=== PATIENT | female | born 1965 | race Caucasian/White ===

== ENCOUNTER 2018-01-13 10:48 | Emergency (ER) | payer OTHER ==
[2018-01-13] MEDS ORDERED: Ketorolac INJ* 30 MG/ML 1 ML VIAL IM ONE (11:18)
[2018-01-13] MEDS ORDERED: LORazepam TAB(*) 1 MG PO ONE (11:18)
--- NOTE | 2018-01-13 11:23 | ED ---
Neck Pain - HPI Summary HPI Summary: This patient is a 52 year old F presenting to [facility] accompanied by her with a chief complaint of upper neck pain since last PM (01/12/18). She endorses that 2 years ago she was diagnosed with a torn rotator cuff, dx with MRI shoulder and neck. PMHx migraines, herniated discs in neck. She endorses twisting her ankle but no other trauma last PM; she was sitting, watching TV when she experienced inability to move secondary to sudden onset pain. She notes severe upper neck pain, LUE paresthesia and DROM; I have to think really hard to make it move, the LUE is automatically [place] on its own transiently, DROM of neck secondary to pain, and new onset RUE paresthesia. Prior to yesterday, her only real neck sx were fatigue problems. Last PM pt took Advil and hydrocodone which did not alleviate sx. She notes she normally would take Advil for her neck pain, but nothing stronger, as the sx are usually never very serious. - History of Current Complaint Chief Complaint: EDNeckComplaint Stated Complaint: NECK PAIN Time Seen by Provider: 01/13/18 11:05 Hx Obtained From: Patient Onset/Duration Of Injury/Symptoms: Hours Mechanism Of Injury: No Known Trauma Timing: Constant Onset/Duration: Sudden Onset, Started hours ago, Still Present Severity Initially: Moderate Severity Currently: Moderate Pain Intensity: 8 Pain Scale Used: 0-10 Numeric Location: Discrete At: - L paracervical neck Character: Sharp, Stiff, Spasmotic Aggravating Factors: Movement Alleviating Factors: Nothing Associated Signs & Symptoms: Positive: Weakness - LUE, Paresthesia Related History: Similar Episode/Dx As: - herniated discs, torn rotator cuff, Previous Neck Injury - Allergies/Home Medications Allergies/Adverse Reactions: Allergies Allergy/AdvReac Type Severity Reaction Status Date / Time amoxicillin Allergy upset Verified 01/13/18 11:26 stomach Home Medications: Home Medications Ferrous Sulfate [Iron] 1 tab PO DAILY 01/13/18 [History Confirmed 01/13/18] Multivitamin [Daily Multiple Vitamin] 1 tab PO DAILY 01/13/18 [History Confirmed 01/13/18] Vitamin B Complex CAP* [B Complex CAP*] 1 cap PO DAILY 01/13/18 [History Confirmed 01/13/18] Vitamin D3 CAP/TAB (NF) 1 cap PO DAILY 01/13/18 [History Confirmed 01/13/18] PMH/Surg Hx/FS Hx/Imm Hx Endocrine/Hematology History: Denies: Hx Diabetes Cardiovascular History: Denies: Hx Hypertension, Hx Pacemaker/ICD History: Denies: Hx Renal Disease Musculoskeletal History: Reports: Hx Scoliosis - THORACIC, Other Musculoskeletal History - torn rotator cuff, herniated discs in neck Sensory History: Denies: Hx Legally Blind, Hx Deafness, Hx Hearing Aid Opthamlomology History: Denies: Hx Legally Blind EENT History: Denies: Hx Deafness Neurological History: Reports: Hx Migraine Denies: Hx Headaches, Other Neuro Impairments/Disorders Psychiatric History: Denies: Hx Panic Disorder - Cancer History Hx Chemotherapy: No Hx Radiation Therapy: No - Surgical History Surgery Procedure, Year, and Place: LT BREAST BIOPSY - W/ CLIP PLACEMENT - [id number]- BENIGN TUMOR REMOVED FROM BEHIND Rt [id number] C [id number] - ILEO- POUCH RECONSTRUCTION - COMPLETE COLON REMOVED - ULCERATIVE COLITIS Infectious Disease History: No Infectious Disease History: Denies: Traveled Outside the [place] in Last 30 Days - Family History Known Family History: Positive: Cardiac Disease, Hypertension, Other - sister, neck problems Negative: Renal Disease, Seizure Disorder - Social History Occupation: Employed Full-time Lives: With Family Review of Systems Negative: Fever Positive: no symptoms reported Positive: Arthralgia - neck, Decreased ROM - neck, LUE Positive: Weakness - LUE, Paresthesia - BUE All Other Systems Reviewed And Are Negative: Yes Physical Exam - Summary Physical Exam Summary: Appearance: The patient is well-nourished in no acute distress and in no acute pain. Skin: The skin is warm and dry and skin color reflects adequate perfusion. HEENT: The head is normocephalic and atraumatic. The pupils are equal and reactive. The conjunctivae are clear and without drainage. Nares are patent and without drainage. Mouth reveals moist mucous membranes and the throat is without erythema and exudate. The external ears are intact. The ear canals are patent and without drainage. The tympanic membranes are intact. Neck: The neck is supple with DROM and tenderness in the left para-cervical area. There are no carotid bruits. There is no neck vein distension. Respiratory: Chest is non-tender. Lungs are clear to auscultation and breath sounds are symmetrical and equal. Cardiovascular: Heart is regular rate and rhythm. There is no murmur or rub auscultated. There is no peripheral edema and pulses are symmetrical and equal. Abdomen: The abdomen is soft and non-tender. There are normal bowel sounds heard in all four quadrants and there is no organomegaly palpated. Musculoskeletal: There is no back tenderness noted. Extremities are non-tender with full range of motion. There is good capillary refill. There is no peripheral edema or calf tenderness elicited. Neurovascular and motor exams seem to be intact distally. Neurological: Patient is alert and oriented to person, place and time. The patient has symmetrical motor strength in all four extremities. Cranial nerves are grossly intact. Deep tendon reflexes are symmetrical and equal in all four extremities. Neurovascular and motor exams seem to be intact distally. Psychiatric: The patient has an appropriate affect and does not exhibit any anxiety or depression. Triage Information Reviewed: Yes Vital Signs On Initial Exam: Initial Vitals Temp Pulse Resp BP Pulse Ox 97.6 F 81 16 125/82 97 01/13/18 10:50 01/13/18 10:50 01/13/18 10:50 01/13/18 10:50 01/13/18 10:50 Vital Signs Reviewed: Yes Diagnostics - Vital Signs Vital Signs Temp Pulse Resp BP Pulse Ox 01/13/18 10:50 97.6 F 81 16 125/82 97 - Laboratory Lab Statement: Any lab studies that have been ordered have been reviewed, and results considered in the medical decision making process. - CT C-spine CT Interpretation Completed By: Radiologist Summary of CT Findings: DEGENERATIVE DISC DISEASE WITH UNCOVERTEBRAL OSTEOARTHRITIS AT C5-C6 RESULTING IN MODERATE LEFT NEURAL FORAMINAL NARROWING. THERE IS NO OSSEOUS CENTRAL CANAL STENOSIS. Dr. Kirkpatrick has reviewed this report. MRI neck CT Interpretation Completed By: Radiologist Summary of CT Findings: DEGENERATIVE DISC DISEASE WITH A LEFT-SIDED CALCIFIED DISC PROTRUSION VERSUS POSTERIOR OSTEOPHYTE AT C5-C6 WITH MASS EFFECT UPON THE VENTRAL NERVE ROOT AND MILD NARROWING OF CENTRAL CANAL. THERE IS ASSOCIATED LEFT NEURAL FORAMINAL NARROWING. Dr. Kirkpatrick has reviewed this report. Neck Course/Dx - Course Course Of Treatment: Ms. Sarah Cardona presented complaining of severe neck pain mostly on the left side. She cannot move her head at all without exacerbating the pain. Started last night with no known trauma. She complains of tingling paresthesias in her right third fourth and fifth fingers. And some vague problems with her left arm. She says that it seems to require a lot of concentration to move it and sometimes it seems to want to move by itself. Her neuro exam was normal here although there might have been a suggestion of weakness of the intrinsic muscles of her hand. CT showed foraminal narrowing at C6 on the left and labs are within normal limits. She did get significant relief from Ativan as a muscle relaxer as well as Toradol. She was reticent to leave at that point and therefore I consulted with Dr. Calloway who requested an MRI scan MRI scan showed an osteophyte at the nerve root at C6 and Dr. Gao recommended outpatient follow-up. I will give her a Medrol Dosepak. - Diagnoses Provider Diagnoses: Cervical radiculopathy - Physician Notifications Discussed Care Of Patient With: Viji Fitzgerald Time Discussed With Above Provider: 13:20 Instructed by Provider To: Other - Recommends obtaining an MRI. Discharge - Sign-Out/Discharge Documenting (check all that apply): Patient Departure - discharge - Discharge Plan Condition: Stable Disposition: HOME Prescriptions: HYDROcodone/ACETAMIN 5-325 MG* [Stewart 5-325 TAB*] 1 tab PO Q6H PRN #20 tab MDD 4 PRN Reason: Pain HYDROcodone/ACETAMIN 5-325 MG* [Stewart 5-325 TAB*] 1 tab PO Q6H PRN #20 tab MDD 4 PRN Reason: Pain LORazepam TAB(*) [Ativan TAB(*)] 1 mg PO Q6H PRN #20 tab MDD 4 PRN Reason: Pain LORazepam TAB(*) [Ativan TAB(*)] 1 mg PO Q6H PRN #20 tab MDD 4 PRN Reason: Pain methylPREDNISolone [Medrol Dosepak 4 MG*] 4 mg PO .SEE GATITO INSTRUCTION #1 tab methylPREDNISolone [Medrol Dosepak 4 MG*] 4 mg PO .SEE GATITO INSTRUCTION #1 tab Patient Education Materials: Cervical Radiculopathy (ED) Referrals: Viji Fitzgerald MD [Medical Doctor] - Additional Instructions: I recommend taking Ibuprofen in addition for pain. Follow up with Dr. Fitzgerald next week. Return to the emergency room for any new or worsening symptoms. - Billing Disposition and Condition Condition: STABLE Disposition: Home - Attestation Statements Document Initiated by Desiree: Yes Documenting Scribe: Todd Guy Provider For Whom Scribe is Documenting (Include Credential): Dr. Ryan Kirkpatrick MD Scribe Attestation: I, Todd Guy, scribed for Dr. Ryan Kirkpatrick MD on 01/14/18 at 1630. Scribe Documentation Reviewed: Yes Provider Attestation: The documentation as recorded by the [email or web address] accurately reflects the service I personally performed and the decisions made by me, Dr. Ryan Kirkpatrick MD
[2018-01-13 15:52] VITALS: BP 128/96
== END 2018-01-13 15:51 | disposition home or self-care (01) ==
LOC: ED 10:48
DX: M54.12 Radiculopathy, cervical region (principal); M50.30 Other cervical disc degeneration, unspecified cervical region; M54.2 Cervicalgia; R53.1 Weakness
CPT/HCPCS: 72125; 72141; 96372; 99282; A9270-GY; J1885

== ENCOUNTER 2018-02-21 11:10 | Observation (INO) | payer OTHER ==
[~2018-02-21 11:10] MED LIST: Buffered Lidocaine 0.9% SYRIN* 5 ML/SYR SYRINGE INTRADERM ONE; Famotidine IV* 10 MG/ML 2 ML (20 mg) IV ONE; Lactated Ringers 1000 ML Bag* 1,000 ML IV SCH
[2018-02-21] MEDS ORDERED: Lidocaine 2% PF * 5 ML VIAL ONE (11:11)
[2018-02-21] MEDS ORDERED: KETAMINE HCL* 50 MG/ML 10 ML VIAL ONE (11:11)
[2018-02-21] MEDS ORDERED: fentaNYL* 50 MCG/ML 2 ML VIAL (100 MCG VIAL) ONE ×2 (11:11→13:24)
[2018-02-21] MEDS ORDERED: Midazolam* 1 MG/ML 5 ML VIAL (5 MG) ONE ×2 (11:11→13:24)
[2018-02-21] MEDS ORDERED: Propofol* 10 MG/ML 20 ML BTL ONE ×2 (11:11→14:36)
[2018-02-21] MEDS ORDERED: Dexamethasone IV* 4 MG/ML 1 ML (4 MG) ONE (11:11)
[2018-02-21] MEDS ORDERED: Ondansetron INJ* 2 MG/ML VIAL ONE (11:11)
--- OUTSIDE RECORDS SUMMARY | 2018-02-21 11:13 | XMS REPORT | Continuity of Care Document ---
:1965 External Reference #:[id number] Author Name Lilia Gold Care Team Providers Name Role Phone Purvi Valderrama MD Primary Care Physician Unavailable Payers Type Date Identification Numbers Payment Provider Subscriber Policy Number: [id number] [employer] Melita Cardona Group Number: [id number] [address] PayID: [id number] [place] [address] Advance Directives Description No Information Available Problems Date Description Provider Status Onset: 01/05/2015 Cervical disc disorder Thiago Martinez M.D. Active Onset: 01/06/2015 Sprain of shoulder and upper arm Ej Araujo MD Active Onset: 05/11/2015 Displacement of cervical intervertebral Thiago Martinez M.D. 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 ETOH Use Occasionally consumes alcohol Tobacco Use Start: Unknown End: Patient is a former smoker Unknown Recreational Drug Use Denies Drug Use Smoking Status Reviewed: 02/06/18 Patient is a former smoker Exercise Type/Frequency Exercises sporadically Allergies, Adverse Reactions, Alerts Description No Known Drug Allergies Medications Medication Date Status Form Strength Qnty SIG Indications Ordering Provider Hydrocodone/A Active Tablets 5-500mg 1 tab po Jannie, cetaminophen 000 prn Purvi Sotelo MD Metaxalone Active Tablets 800mg 1 tab po Jannie, 000 tid prn Purvi Sotelo MD Ibuprofen Active Tablets 800mg 1 tab po Unknown 000 prn Iron Complex Active Capsules 2 caps po Unknown 000 bid Vitamin D Active 1 tab po Unknown 000 daily Vitamin B Active Tablets 30tabs 1 po qd Unknown Complex 000 Aspir-[address] 81mg 1 by Unknown 000 mouth every day Gabapentin Hx Capsules 100mg 120caps 1 by M50.12 Thiago 016 - mouth Michelle, twice a M.D. 018 day, 2 by mouth at bedtime Immunizations Description No Information Available Vital Signs Date Vital Result Comment 02/06/2018 9:33am Height 69 inches 5'9" Weight 210.00 lb BP Systolic Sitting 150 mmHg BP Diastolic Sitting 80 mmHg Pain Level 3 BMI (Body Mass Index) 31.0 kg/m2 01/15/2018 4:26pm Height 69 inches 5'9" Weight 210.00 lb BP Systolic Sitting 140 mmHg BP Diastolic Sitting 70 mmHg Pain Level 7 BMI (Body Mass Index) 31.0 kg/m2 05/11/2015 9:16am Height 69 inches 5'9" Weight 215.00 lb Heart Rate 78 /min BP Systolic Sitting 130 mmHg BP Diastolic Sitting 80 mmHg Pain Level 0 BMI (Body Mass Index) 31.7 kg/m2 04/20/2015 2:25pm Height 69 inches 5'9" Weight 215.00 lb Heart Rate 66 /min BP Systolic Sitting 112 mmHg BP Diastolic Sitting 78 mmHg Pain Level 4 BMI (Body Mass Index) 31.7 kg/m2 01/06/2015 8:47am Height 69 inches 5'9" Weight 215.00 lb Heart Rate 88 /min BP Systolic 147 mmHg BP Diastolic 90 mmHg BMI (Body Mass Index) 31.7 kg/m2 01/05/2015 10:56am Height 69 inches 5'9" Weight 215.00 lb Heart Rate 60 /min BP Systolic Sitting 140 mmHg BP Diastolic Sitting 80 mmHg Pain Level 0 BMI (Body Mass Index) 31.7 kg/m2 12/20/2012 8:48am Heart Rate 80 /min BP Systolic Sitting 130 mmHg BP Diastolic Sitting 78 mmHg Respiratory Rate 16 /min Results Test Date Facility Test Result H/L Range Note Basic Metabolic 02/14/2018 [facility] Sodium 137 mmol/L N 135- 145 [address] [place] [address] [phone] Potassium 4.1 mmol/L N 3.5-5.0 Chloride 104 mmol/L N 101-111 Co2 Carbon Dioxide 25 mmol/L N 22-32 Anion Gap 8 mmol/L N 2-11 Glucose 96 mg/dL N 70-100 Blood Urea Nitrogen 14 mg/dL N 6-24 Creatinine 0.73 mg/dL N 0.51-0.95 BUN/Creatinine Ratio 19.2 N 8-20 Calcium 9.2 mg/dL N 8.6-10.3 Egfr Non- 84.0 >60 Egfr 101.7 >60 1 Laboratory test 02/14/2018 [facility] HCG < 0.[address] mIU/[place] [address] [phone] CBC No Diff 02/14/2018 [facility] White Blood 7.1 10^3/uL N 3.5-[address] Count .8 [place] [address] [phone] Red Blood Count 4.54 10^6/uL N 4.00-5.40 Hemoglobin 14.4 g/dL N 12.0-16.0 Hematocrit 42 % N 35-47 Mean Corpuscular Volume 91 fL N 80-97 Mean Corpuscular Hemoglobin 32 pg High 27-31 Mean Corpuscular HGB Conc 35 g/dL N 31-36 Red Cell Distribution Width 13 % N 10.5-15 Platelet Count 205 10^3/uL N 150-450 Mean Platelet Volume 8.0 fL N 7.4-10.4 Inr/Protime 02/14/2018 [facility] Inr 0.93 N 0.77-1.[address] [place] [address] [phone] Laboratory test 02/14/2018 [facility] Partial 25.7 Low 26.0- 36.[address] [place] [address] PTT [phone] Urinalysis 02/14/2018 [facility] Urine Color Yellow Profile [address] [place] [address] [phone] Urine Appearance Cloudy Urine Specific [place] 1.020 N 1.010-1.030 Urine pH 5.0 N 5-9 Urine Urobilinogen Negative Negative Urine Ketones Negative Negative Urine Protein Negative Negative Urine Leukocytes Negative Negative Urine Blood Negative Negative Urine Nitrite Negative Negative Urine Bilirubin Negative Negative Urine Glucose Negative Negative Type & Screen 02/14/2018 [facility] Patient Blood Type A Positive [address] [place] [address] [phone] Antibody Screen NEGATIVE 1 Because ethnic data is not always readily available, this report includes an eGFR for both -Americans and non- Americans. The National Kidney Disease Education Program (NKDEP) does not endorse the use of the MDRD equation for patients that are not between the ages of 18 and 70, are , have extremes of body size, muscle mass, or nutritional status, or are non- or non-. According to the National Kidney Foundation, irrespective of diagnosis, the stage of the disease is based on the level of kidney function: Stage Description GFR(mL/min/1.73 m(2)) 1 Kidney damage with normal or decreased GFR 90 2 Kidney damage with mild decrease in GFR 60-89 3 Moderate decrease in GFR 30-59 4 Severe decrease in GFR 15-29 5 Kidney failure <15 (or dialysis) 2 <5.0 Negative 5.0 - 25.0 Indeterminate (Repeat testing recommended after 72 hours) >25.0 Positive Perimenopausal women can display HCG levels of up to 20 mIU/mL Procedures Date Code Description Status 12/20/2012 43619 Nerve Conduction 03-04 Studies Completed 12/20/2012 37821 Needle Electromyography Complete, Five Or More Muscles Completed Studied Encounters Type Date Location Provider Dx Diagnosis Office Visit 01/15/2018 [facility] M50.122 Cervical disc 4:15p [facility] Fitzgerald MD disorder at C5-C6 level with radiculopathy M48.02 Spinal stenosis, cervical region Office Visit 05/11/2015 [facility] M50.22 Other cervical 9:15a [facility] Martinez M.D. disc displacement, mid-cervical region Office Visit 04/20/2015 [facility] M50.22 Other cervical 2:30p [facility] Martinez M.D. disc displacement, mid-cervical region Office Visit 01/06/2015 Orthopedic Ej Araujo, S46.012A Strain of 8:30a Services Of MD manriquez/shayan the C.M.A. rotator cuff of left shoulder, init M50.12 Cervical disc disorder w radiculopathy, mid-cervical region Office Visit 01/05/2015 [facility] M50.12 Cervical disc 10:45a [facility] Mike Martinez disorder w radiculopathy, mid-cervical region Plan of Treatment Future Appointment(s):02/21/2018 1:00 pm - Viji Fitzgerald MD at [facility]02/06/2018 - Viji Fitzgerald, MDM50.122 Cervical disc disorder at C5-C6 level with radiculopathyNew Xrays:SP Cerv Comp/ Obl, Flex, Ext, Ordered: 02/06/18ollow up:RV one week, one month, three months postop. Please obtain XR prior to surgery and notify me when patient is seen by ENT.M48.02 Spinal stenosis, cervical syolugV61.222 Other cervical disc displacement at C5-C6 level
--- OUTSIDE RECORDS SUMMARY | 2018-02-21 11:13 | XMS REPORT ---
:1965 External Reference #:[id number] Author Organization [facility] Address [address] [place] [address] Phone [phone] Care Team Providers Name Role Phone Purvi Valderrama Care Team Information Sanipractic Physician Unavailable Purvi Valderrama Primary Care Physician Unavailable Payers Type Date Identification Payment Subscriber Numbers Provider Health Maintenance Effective: Policy Number: Jl Lopez Organization (HMO) 03/06/2016 [id number] [employer] Number: [id number] [address] PayID: [id number] [place] [address] Problems Date Description Provider Status Onset: 11/11/2014 Hypertrophy of breast Purvi Valderrama M.D. Active Onset: 11/11/2014 Shoulder joint pain Purvi Valderrama M.D. Active Onset: 11/11/2014 Spasm Purvi Valderrama M.D. Active Onset: 11/11/2014 Neck pain Purvi Valderrama M.D. Active Onset: 01/28/2014 Symptom of skin and integumentary Purvi Valderrama M.D. Active tissue Onset: 01/28/2014 Hyperlipidemia Purvi Valderrama M.D. Active Onset: 01/28/2014 Deficiency anemias Purvi Valderrama M.D. Active Onset: 01/28/2014 Disorder of shoulder Purvi Valderrama M.D. Active Onset: 01/28/2014 Overweight Purvi Valderrama M.D. Active Onset: 01/28/2014 Refractory migraine Purvi Valderrama M.D. Active Onset: 11/26/2011 Pilar Cyst Aiyana Archuleta M.D. 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 Cigarette Use Nonsmoker Cigarette Use former smoker quit 1997 ETOH Use Occasional wine with dinner twice a month. Smoking Patient is a former smoker quit 1997. Daily Caffeine Consumes on average 2 sodas per day Daily Caffeine Consumes on average 2 cups of creamer. coffee per day Exercise Type/Frequency walking to and from school. 2miles daily. 40 minutes daily. Seat Belt/Car Seat Always uses seat belt Contraceptive Methods Current methods include vasectomy Dom Violence Screen screening has been done Dom Violence Screen feels safe at home, at work, and in the community Allergies, Adverse Reactions, Alerts Date Description Reaction Status Severity Comments 02/16/2018 Amoxicillin active sensitivity 11/10/2011 NKDA inactive Medications Medication Date Status Form Strength Qnty SIG Indications Ordering Provider Tizanidine HCL 01/18/ Active Capsules 2mg 60cap 1-2 by M54.2 Purvi Sotelo 2017 s mouth up to Jannie, three times M.D. a day. driving precautions . Hydrocodone-Ac 09/16/ Active Tablets 5-325mg 60tab 1 by mouth Z00.00 Purvi Sotelo etaminophen 2017 s every 6 Jannie, hours as M.D. needed Vitamin D / Active Tablets 1000Unit bid Unknown (Cholecalcifer 0000 ol) Niacin / Active Tablets 500mg 90tab 1 by mouth Unknown 0000 s every day Iron / Active Tablets 325(65Fe) 60tab 1 by mouth Unknown 0000 mg s twice a day Vitamin B / Active Tablets 1 by mouth Unknown Complex 0000 every day Aspirin / Active Tablets DR 81mg 1 by mouth Unknown Childrens 0000 every day Hydrocodone 06/27/ Hx Tablets 5-300mg 30tab 1 -2 by Z00.00 Paige Bitartrate/Luis A 2016 - s mouth 4 [place], taminophen 09/16/ times daily M.D. 2016 Hydrocodone 01/18/ Hx Tablets 5-300mg 30tab 1 -2 by Z00.00 Purvi Sotelo Bitartrate/Luis A 2015 - mouth 4 Jannie, taminophen 02/22/ times M.D. 2015 daily Hydrocodone/Ac 08/19/ Hx Tablets 5-325mg 30tab 1-2 by Z00.00 Purvi Sotelo etaminophen 2015 - mouth by Jannie, 01/18/ mouth four M.D. 2016 times a day as needed pain pudt #30 thirty Hydrocodone/Ac 08/18/ Hx Tablets 5-325mg 30tab 1-2 by Z00.00 Purvi Sotelo etaminophen 2015 - mouth by Jannie, 01/18/ mouth four M.D. 2016 times a day as needed pain Azithromycin 05/06/ Hx Tablets 250mg 6tabs 2 tabs J20.9 Paige 2016 - today, then [place], tab daily M.D. 2015 for next 4 days Cheratussin ac 05/06/ Hx Syrup 100-10mg/5 118ml 2 teaspoon J20.9 Paige 2016 - ML every 4 [place], 02/22/ hours as M.D. 2016 needed Prednisone 01/24/ Hx Tablets 20mg 13tab 2 by mouth Purvi Sotelo 2014 - s every day x Jannie, 05/06/ 3d, then 1 M.D. 2015 by mouth every day x3 d and 1/2 by mouth x 3 d take with food Metaxalone 11/11/ Hx Tablets 800mg 90tab 1 by mouth M54.2 Purvi Sotelo 2014 - s every 8h as Jannie, 11/29/ needed M.D. 2017 muscle spasm pu dt Physical 08/27/ Hx evaluate M54.2 Purvi Sotelo Therapy 2014 - and treat Jannie, 02/22/ neck pain. M.D. 2016 Physical 02/19/ Hx treatment 723.5 Delmi Therapy 2013 - and Karthik, 08/27/ evaluation Afnp-C 2014 of left neck pain Orphenadrine 02/19/ Hx Tablets ER 100mg 20tab 1 by mouth 723.5 Delmi Citrate ER 2013 - 12HR s twice a day Karthik, 03/01/ as needed Afnp-C 2013 for muscle spasm Hydrocodone/Ac 01/28/ Hx Tablets 5-325mg 30tab 1-2 by Z00.00 Purvi preciadominophen 2013 - s mouth by Jannie, 08/16/ mouth four M.DJohn 2015 times a day as needed pain pudt #30 thirty Metaxalone 01/28/ Hx Tablets 800mg 45tab 1 po q 8h 726.19 Purvi Sotelo 2013 - s prn muscle Jannie, 02/19/ spasm pu M.D. 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 2013 #30 thirty Cephalexin 11/06/ Hx Capsules 500mg 20cap 1 by mouth 681.00 Bucky Bowen 2013 - s twice a day M.D. 02/25/ for 10 days 2012 Prednisone 11/06/ Hx Tablets 20mg 10tab 1 by mouth 354.0 Bucky Bowen, 2013 - s twice a day M.D. 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 2012 - s prn muscle Jannie, 01/28/ spasm pu M.D. 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 2013 Hydrocodone / Hx Tablets 5-300mg 30tab one tab po Lesia Bitartrate/Luis A 0000 - s every 4-6 [place], taminophen 11/09/ hours prn Afnp-C 2011 pain Immunizations CPT Code Status Date Vaccine Lot # [id number] Given 01/18/2018 Influenza Vac, Quadrivalent, Slit Virus, Im [id number] Given 01/28/2014 DO Not Use Split Influenza Virus Vaccine [id number] Given 02/25/2013 Preservative free flu 3 yrs+ and older [id number] Given 12/27/2011 Tdap Tetanus, W Pertussis [id number] Vital Signs Date Vital Result Comment 02/16/2018 BP Systolic 118 mmHg BP Diastolic 76 mmHg Heart Rate 76 /min Body Temperature 97.5 F Respiratory Rate 18 /min Height 71 inches 5'11" Weight 230.00 lb BMI (Body Mass Index) 32.1 kg/m2 01/18/2018 BP Systolic 132 mmHg BP Diastolic 70 mmHg Heart Rate 76 /min Body Temperature 97.2 F Respiratory Rate 20 /min Height 71 inches 5'11" Weight 231.00 lb BMI (Body Mass Index) 32.2 kg/m2 06/16/2017 BP Systolic 106 mmHg BP Diastolic 62 mmHg Heart Rate 92 /min Body Temperature 98.5 F Respiratory Rate 17 /min Height 70 inches 5'10" Weight 229.00 lb BMI (Body Mass Index) 32.9 kg/m2 11/29/2016 BP Systolic 134 mmHg BP Diastolic 82 mmHg Heart Rate 80 /min Body Temperature 98.6 F Respiratory Rate 16 /min Height 70 inches 5'10" Weight 221.00 lb BMI (Body Mass Index) 31.7 kg/m2 02/23/2016 BP Systolic 128 mmHg BP Diastolic 80 mmHg Heart Rate 72 /min Body Temperature 98.0 F Respiratory Rate 18 /min Height 70 inches 5'10" Weight 214.00 lb BMI (Body Mass Index) 30.7 kg/m2 05/07/2015 BP Systolic 122 mmHg BP Diastolic 70 mmHg Heart Rate 72 /min Body Temperature 97.7 F Respiratory Rate 18 /min Height 69 inches 5'9" Weight 210.00 lb BMI (Body Mass Index) 31.0 kg/m2 11/11/2014 BP Systolic 124 mmHg BP Diastolic 70 mmHg Heart Rate 74 /min Body Temperature 97.6 F Respiratory Rate 18 /min Height 69 inches 5'9" Weight 212.00 lb BMI (Body Mass Index) 31.3 kg/m2 08/27/2014 BP Systolic 126 mmHg BP Diastolic 80 mmHg Heart Rate 84 /min Body Temperature 98.4 F Respiratory Rate 16 /min Height 69 inches 5'9" Weight 206.38 lb BMI (Body Mass Index) 30.5 kg/m2 02/19/2014 BP Systolic 110 mmHg BP Diastolic 78 mmHg Heart Rate 84 /min Body Temperature 97.9 F Respiratory Rate 16 /min Height 69 inches 5'9" Weight 205.00 lb BMI (Body Mass Index) 30.3 kg/m2 01/28/2014 BP Systolic 110 mmHg BP Diastolic 80 mmHg Heart Rate 80 /min Body Temperature 98.2 F Respiratory Rate 18 /min Height 69 inches 5'9" Weight 205.00 lb BMI (Body Mass Index) 30.3 kg/m2 10/09/2013 BP Systolic 122 mmHg BP Diastolic 82 mmHg Heart Rate 68 /min Body Temperature 99.5 F Respiratory Rate 16 /min O2 % BldC Oximetry 98 % Height 69.5 inches 5'9.50" Weight 203.00 lb BMI (Body Mass Index) 29.5 kg/m2 02/25/2013 BP Systolic 116 mmHg BP Diastolic 80 mmHg Heart Rate 66 /min Body Temperature 99.1 F Respiratory Rate 16 /min Height 69.5 inches 5'9.50" measured Weight 211.00 lb BMI (Body Mass Index) 30.7 kg/m2 11/06/2012 BP Systolic 124 mmHg BP Diastolic 80 mmHg Heart Rate 72 /min Body Temperature 98.0 F Respiratory Rate 18 /min Height 69.5 inches 5'9.50" Weight 212.00 lb BMI (Body Mass Index) 30.9 kg/m2 04/27/2012 BP Systolic 122 mmHg BP Diastolic 90 mmHg Heart Rate 70 /min Body Temperature 98.8 F Height 69.5 inches 5'9.50" Weight 212.00 lb BMI (Body Mass Index) 30.9 kg/m2 12/27/2011 BP Systolic 118 mmHg BP Diastolic 74 mmHg Heart Rate 72 /min Body Temperature 98.7 F Height 69.5 inches 5'9.50" measured Weight 204.00 lb BMI (Body Mass Index) 29.7 kg/m2 11/30/2011 BP Systolic 120 mmHg BP Diastolic 70 mmHg Heart Rate 80 /min Body Temperature 98.2 F Respiratory Rate 18 /min Height 70 inches 5'10" Weight 204.00 lb BMI (Body Mass Index) 29.3 kg/m2 11/26/2011 BP Systolic 126 mmHg BP Diastolic 90 mmHg Heart Rate 60 /min Body Temperature 98.2 F Height 70 inches 5'10" Weight 203.00 lb BMI (Body Mass Index) 29.1 kg/m2 11/10/2011 BP Systolic 110 mmHg BP Diastolic 80 mmHg Heart Rate 78 /min Height 70 inches 5'10" Weight 206.00 lb BMI (Body Mass Index) 29.6 kg/m2 Results Test Date Test Result H/L Range Note Comprehensive Metabolic Prof 02/03/2018 Sodium 140 mEq/L 134-149 Potassium 4.7 mEq/L 3.6-5.5 Chloride 103 mEq/L 94-112 Carbon Dioxide 23 mEq/L 21-32 Glucose 103 mg/dL 70-105 BUN 8 mg/dL 6-26 Creatinine 0.7 mg/dL 0.6-1.4 BUN/Creat Ratio 11.4 CALC 8.0-36.0 Calcium 8.6 mg/dL 8.6-10.2 Total Protein 6.7 g/dL 6.4-8.3 Albumin 4.3 g/dL 3.8-5.5 Globulin 2.4 g/dL 2.0-4.8 A/G Ratio 1.8 CALC 0.6-2.3 Alk. Phosphatase 48 U/L 30-110 Alt (SGPT) 50 U/L High 7-35 Ast (Sgot) 30 U/L 5-34 Total Bilirubin 0.4 mg/dL 0.2-1.3 GFR Non- >60 ml/min/1.73m^ >=60 GFR >60 ml/min/1.73m^ >=60 Lipid Profile 02/03/2018 Cholesterol 234 mg/dL High 120-200 Triglycerides 130 mg/dL 30-200 HDL Cholesterol 64 mg/dL 30-85 LDL (Calculated) 144 CALC High 0-129 VLDL Cholesterol 26 mg/dL 0-50 HDL Risk Factor 3.7 CALC 0.0-4.4 Laboratory test finding 02/03/2018 TSH 0.74 mIU/L 0.50-6.00 CBC Electronic ([facility]ma New) 02/03/2018 WBC 7.16 4.0-10.0 RBC 4.41 3.93-6.0 Hemoglobin (Fma/CMC/CTX) 13.8 g/dL 12.0-17.0 Hematocrit (Fma/CMC/CTX) 39.8 % 35.0-50.0 Mean Corpuscular Vol 90.2 fL 80-95 Mean Corpuscular Hemoglobin 31.3 pg 25.6-32.2 Mean Corpuscular Hemo Concen 34.7 g/dL 32.2-36.0 Platelets 167 10^3/ul 163-400 RDW-CV 12.1 11.6-14.4 Mean Platelet Volume 9.4 fL 8.0-12.4 Absolute Neutrophils BLD 4.53 1.56-6.13 Absolute Lymphocytes 1.94 1.18-3.74 Absolute Monocytes BLD Auto 0.54 0.24-0.82 Absolute Eos Blood 0.11 0.04-0.54 Absolute Basophils 0.02 0.01-0.08 Neutrophil % 63.3 % 34.0-70.0 Lymph% 27.1 % 20.0-52.0 Monocytes % 7.5 % 5.0-12.0 Eos % 1.5 % 0.7-7.0 Basophil% 0.3 % 0-1.2 Laboratory test finding 11/29/2016 Quickstrep negative Negative Comprehensive Metabolic Prof 02/13/2016 Sodium 140 mEq/L 134-149 Potassium 4.5 mEq/L 3.6-5.5 Chloride 100 mEq/L 94-112 Carbon Dioxide 22 mEq/L 21-32 Glucose 98 mg/dL 70-105 BUN 12 mg/dL 6-26 Creatinine 0.7 mg/dL 0.6-1.4 BUN/Creat Ratio 17.1 CALC 8.0-36.0 Calcium 8.6 mg/dL 8.6-10.2 Total Protein 7.0 g/dL 6.4-8.3 Albumin 4.1 g/dL 3.8-5.5 Globulin 2.9 g/dL 2.0-4.8 A/G Ratio 1.4 CALC 0.6-2.3 Alk. Phosphatase 50 U/L 30-110 Alt (SGPT) 22 U/L 7-35 Ast (Sgot) 18 U/L 5-34 Total Bilirubin 0.3 mg/dL 0.2-1.3 GFR Non- >60 ml/min/1.73m^ >=60 GFR >60 ml/min/1.73m^ >=60 Lipid Profile 02/13/2016 Cholesterol 255 mg/dL High 120-200 Triglycerides 132 mg/dL 30-200 HDL Cholesterol 65 mg/dL 30-85 LDL (Calculated) 164 CALC High 0-129 VLDL Cholesterol 26 mg/dL 0-50 HDL Risk Factor 3.9 CALC 0.0-4.4 Complete Blood Count 02/13/2016 WBC 6.3 x10^3/UL 3.6-9.6 RBC 4.27 x10^6/UL 3.90-5.70 HGB 13.7 g/dL 12.1-17.2 HCT 40 % 36-50 MCV 92.0 fL 82.2-97.4 MCH 32.0 pg 27.6-33.3 MCHC 34.6 g/dL 33.0-35.5 RDW 12.9 % 11.6-13.7 PLT 196 x10^3/UL 150-400 MPV 6.5 fL Low 7.4-10.4 Gran # 4.2 x10^3/UL 1.5-7.2 Lymph# 1.9 x10^3/UL 0.7-4.9 [place]# 0.2 x10^3/UL 0.1-0.9 Gran % 64.2 % 42.2-75.2 Lymph % 31.5 % 20.5-51.1 [place]% 4.3 % 1.7-9.3 Ua - Non Micro ([facility]ma) 01/28/2014 Appearance yellow Color clear Glucose, Urine (Fma/CMC/CTX) neg Bilirubin neg Ketones neg SP Grav <=1.005 Blood neg PH 5.0 Protein neg Urobil 0.2 Nitrite neg Leukocytes (Fma/CMC/Centrex) neg Complete Blood Count 01/17/2014 WBC 6.1 x10^3/UL 3.6-9.6 RBC 4.65 x10^6/UL 3.90-5.70 HGB 15.0 g/dL 12.1-17.2 HCT 44 % 36-50 MCV 94.0 fL 82.2-97.4 MCH 32.2 pg 27.6-33.3 MCHC 34.4 g/dL 33.0-35.5 RDW 11.5 % Low 11.6-13.7 PLT 214 x10^3/UL 150-400 MPV 7.0 fL Low 7.4-10.4 Gran # 3.7 x10^3/UL 1.5-7.2 Lymph# 2.2 x10^3/UL 0.7-4.9 [place]# 0.2 x10^3/UL 0.1-0.9 Gran % 58.8 % 42.2-75.2 Lymph % 37.3 % 20.5-51.1 [place]% 3.9 % 1.7-9.3 Lipid Profile 01/17/2014 Cholesterol 246 mg/dL High 120-200 Triglycerides 130 mg/dL 30-200 HDL Cholesterol 56 mg/dL 30-85 LDL (Calculated) 164 CALC High 0-129 VLDL Cholesterol 26 mg/dL 0-50 HDL Risk Factor 4.4 CALC 0.0-4.4 Comprehensive Metabolic Prof 01/17/2014 Sodium 136 mEq/L 134-149 Potassium 4.1 mEq/L 3.6-5.5 Chloride 101 mEq/L 94-112 Carbon Dioxide 25 mEq/L 21-32 Glucose 99 mg/dL 70-105 BUN 11 mg/dL 6-26 Creatinine 0.7 mg/dL 0.6-1.4 BUN/Creat Ratio 15.7 CALC 8.0-36.0 Calcium 9.4 mg/dL 8.6-10.2 Total Protein 7.4 g/dL 6.4-8.3 Albumin 4.4 g/dL 3.8-5.5 Globulin 3.0 g/dL 2.0-4.8 A/G Ratio 1.5 CALC 0.6-2.3 Alk. Phosphatase 45 U/L 30-110 Alt (SGPT) 48 U/L High 7-35 1 Ast (Sgot) 28 U/L 5-34 Total Bilirubin 0.5 mg/dL 0.2-1.3 Influenza A&B 10/09/2013 Influenza A neg Influenza B neg Ua - Micro ([facility]) 02/25/2013 Appearance CLEAR Color YELLOW Glucose NEG Bilirubin NEG Ketones NEG SP Grav 1.030 Blood TRACE-LYSED PH 5.5 Protein NEG Urobil 0.2 Nitrite NEG Leukocytes (a/CMC/Centrex) NEG Hyaline - /Lpf Granular - /Lpf WBC ([facility]) 0-1 RBC 0-2 Mucus - /Lpf Epith RARE /Lpf Bacteria TRACE /Hpf Amorphous - /Lpf Crystals, Fluid (a/CMC/CTX) - Z#Comments - CBC Electronic ([facility]) 02/11/2013 WBC 6.2 3.6-9.6 RBC 4.43 3.90-5.70 Hemoglobin (a/CMC/CTX) 13.8 g/dL 12.1 - 17.2 Hematocrit (a/CMC/CTX) 41.6 % 36.1 - 50.3 Platelets 226 10^3/ul 150-400 Lymph% 30.1 20.5-51.1 Mixed% 4.9 Neutrophils % 65.0 Mean Corpuscular Vol 94 82.2-97.4 Mean Corpuscular Hemoglobin 31.3 27.6-33.3 Mean Corpuscular Hemo Concen 33.2 32.0-36.0 RDW 11.2 Low 11.6-13.7 Mean Platelet Volume 6.9 6.5-11.0 Comprehensive Metabolic Prof 02/11/2013 Albumin 4.6 g/dL 3.8-5.5 Alk. Phos. 51 U/L 30-110 Alt (SGPT) 36 U/L High 7-35 Ast (Sgot) 24 U/L 5-34 BUN 14 mg/dL 6-26 Calcium 10.2 mg/dL 8.6-10.2 Chloride 105 mEq/L 94-112 Creatinine 0.9 mg/dL 0.6-1.4 Carbon Dioxide 23 mEq/L 21-32 Glucose 104 mg/dL 70-105 Sodium 143 mEq/L 134-149 Total Bilirubin 0.4 mg/dL 0.2-1.3 Total Protein 7.1 g/dL 6.3-8.1 Potassium 4.6 mEq/L 3.6-5.5 Globulin 2.6 g/dL 2.0-4.8 A/G Ratio 1.8 Calc 0.6-2.3 BUN/Creat Ratio 16.0 Calc 8.0-36.0 Lipid Profile 02/11/2013 Cholesterol 264 mg/dL High 120-200 HDL 59 mg/dL 30-85 Triglycerides 109 mg/dL 30-200 HDL Risk Factor 4.5 CALC High 0.0-4.4 LDL (Calculated) 183 CALC High 0-129 VLDL (Calculated) 22 mg/dL 0-50 Surgical Pathology 08/20/2012 S RUN DATE: <SEE NOTE> 2 Ua - Non Micro ([facility]ma) 12/27/2011 Appearance clear Color yellow Glucose neg Bilirubin neg Ketones neg SP Grav 1.015 Blood neg PH 5.5 Protein neg Urobil 0.2 Nitrite neg Leukocytes (Fma/CMC/Centrex) neg Laboratory test finding 12/27/2011 Cytology RUN DATE: 12/27/ <SEE 3 NOTE> Comprehensive Metabolic Prof 12/24/2011 Albumin 4.5 g/dL 3.8-5.5 Alk. Phos. 48 U/L 30-110 Alt (SGPT) 35 U/L 7-35 Ast (Sgot) 25 U/L 5-34 BUN 14 mg/dL 6-26 Calcium 8.9 mg/dL 8.6-10.2 Chloride 104 mEq/L 94-112 Creatinine 0.8 mg/dL 0.6-1.4 Carbon Dioxide 21 mEq/L 21-32 Glucose 97 mg/dL 70-105 Sodium 139 mEq/L 134-149 Total Bilirubin 0.4 mg/dL 0.2-1.3 Total Protein 6.9 g/dL 6.3-8.1 Potassium 4.2 mEq/L 3.6-5.5 Globulin 2.4 g/dL 2.0-4.8 A/G Ratio 1.9 Calc 0.6-2.2 BUN/Creat Ratio 17.3 Calc 8.0-36.0 Lipid Profile 12/24/2011 Cholesterol 224 mg/dL High 120-200 HDL 56 mg/dL 30-85 Triglycerides 89 mg/dL 30-200 HDL Risk Factor 4.0 CALC 0.0-4.4 LDL (Calculated) 150 CALC High 0-129 VLDL (Calculated) 18 mg/dL 0-50 CBC Electronic ([facility]ma) 12/24/2011 WBC 5.8 3.6-9.6 RBC 4.69 3.90-5.70 Hemoglobin (Fma/CMC/CTX) 14.6 g/dL 12.1 - 17.2 Hematocrit (Fma/CMC/CTX) 44.3 % 36.1 - 50.3 Platelets 197 10^3/ul 150-400 Lymph% 35.8 20.5-51.1 Mixed% 4.5 Neutrophils % 59.7 Mean Corpuscular Vol 94 82.2-97.4 Mean Corpuscular Hemoglobin 31.2 27.6-33.3 Mean Corpuscular Hemo Concen 33.0 32.0-36.0 RDW 12.5 11.6-13.7 Mean Platelet Volume 7.1 6.5-11.0 Laboratory test finding 11/26/2011 Surgical Pathology SEE NOTE 4 1 consistent w/ previous results 2 RUN DATE: 08/22/12 [facility] LAB LIVE PAGE 1 RUN TIME: [address] [place] [address] Specimen Inquiry Name: GREG BLAIR : [address]: Bird Ashby MD Acct: [id number] Unit: [id number] AGE: 47 Location: [facility] Re08/20/12 SEX: F Status: REG REF SPEC: [id number] DELIA: 08/20/12- SUBM DR: Sathya Jaffe MD REQ: [id number] RECD: 08/20/121549 STATUS: KRISHAN CHACON DR: Purvi Valderrama MD Wallace A Baker MD _ ORDERED: LEVEL IV FINAL DIAGNOSIS Breast, left, core biopsies: A. Fibroadenoma. B. No evidence of malignancy is identified. PRE-OPERATIVE DIAGNOSIS Left breast mass, enlarging GROSS DESCRIPTION The specimen is received in formalin labeled Gregshelby Cardona, Left Breast Core Biopsy, and consists of multiple estrella-yellow and roth floating and sinking cores measuring 1.7 x 0.8 x 0.2 cm. in aggregate. Submitted entirely, one cassette. Signed (signature on file) Alexander Moore MD 1550 END OF REPORT * ML=Testing performed at Main Lab DEPARTMENT OF PATHOLOGY, [facility] Abigail [address] [place] [address] Alexander Moore M.D. Director [facility] Permit #[id number] 3 RUN DATE: 12/28/11 [facility] LAB LIVE PAGE 1 RUN TIME: 1707 [facility] [employer] [place], [place] [address] Specimen Inquiry Name: LAURA BLAIR : [address]: Purvi Valderrama MD Acct: [id number] Unit: [id number] AGE: 46 Location: [facility] Re12/27/11 SEX: F Status: REG REF SPEC: [id number] DELIA: 12/27/11-[address]: Purvi Valderrama MD REQ: [id number] RECD: 12/28/11 STATUS: SOUT _ ORDERED: IMAGE ANALYSIS Negative for Intraepithelial lesion or Malignancy A. Ectocervical/Endocervical Specimen Adequacy: Satisfactory of evaluation Transformation zone component identified Patient Information: HPV: Thin Layer Pap Test w/reflex to high risk HPV DNA testing when ASCUS Actual Specimen Date: 12/27/11 Last Menstrual Date: 12/20/11 Spec Date if unknown: 2 yrs ago Cautery: N IUD: N ?: N Post Menopausal?: N Hysterectomy?: N Lesion, grossly demonstrate: N Radiation Y/N? N Previous Abnormal Pap Smears?:N Signed (signature on file) NICOL Negrete (ASCP) 12/27 1405 This Pap test was evaluated with the assistance of the ThinPrep Test Imaging System. Due to cytologic findings at the physician office specialist microscope, comprehensive manual rescreening by a City Supervisor may be required. The Pap Smear is a screening test designed to aid in the detection of premalignant and malignant conditions of the uterine cervix. It is not a diagnostic procedure and should not be used as the sole means of detecting cervical cancer. Both false- positive and false- negative reports do occur. Depending on your risk status, a Pap smear shoudl be obtained and evaluated every 1-3 years. END OF REPORT * ML=Testing performed at Main Lab DEPARTMENT OF PATHOLOGY, [address] [place] [address] Alexander Moore M.D. Director [facility] Permit #[id number] [employer]. DEPARTMENT OF PATHOLOGY or Extension 9460 SURGICAL PATHOLOGY REPORT PATIENT: GREG BLAIR : 1965 AGE: 46 Y SEX: F ACCT: [id number] PROCEDURE DATE: 11/26/2011 DATE RECEIVED: 11/29/2011 REQUESTING PHYSICIAN: AIYANA ARCHULETA MD [place] [facility] [id number] FINAL DIAGNOSIS: SKIN, CYSTIC LESION OF SCALP, EXCISION: INFLAMED TRICHILEMMAL CYST (PILAR CYST). LDM/gb D/T 11/30/11 GROSS DESCRIPTION: Received in formalin, labeled with the patient's name and control #[id number], consists of a collapsed rubbery walled pina brown 1 x 0.7 cm rubbery walled cyst. TS/ 1 TGW/slm D/T 11/29/11 CPT; 11322 CLINICAL DATA: 579625 NONE PROVIDED SPECIMEN SUBMITTED: CYST NOS, SCALP 704.41 ADDITIONAL COPIES SENT TO: Electronically Signed by: Signed Date and Time: RBUI CALLAHAN MD PATHOLOGIST 11/30/2011 12:39 Performed at [facility], [address] [place] [address] This report may include one or more immunohistochemistry stain results which use analyte-specific reagents. The interpretation of the above immunohistochemistry stain or stains is guided by published results in the medical literature, provided package information from the medical staff assistant and by internal review of staining performance and assay validation within the Immunohistochemistry Department of [facility]. This testing has not been cleared or approved by the U.S. Food and Drug Administration (FDA). The FDA has determined that such clearance or approval is not necessary. These tests are used for clinical purposes and should not be regarded as investigational or research. Special stains and/or immunohistochemical stains were performed with appropriately stained positive and negative controls. "" Procedures Date CPT Code Description Status Comment 02/16/2018 Colonoscopy Completed Not needed. no colon. has an internal ileostomy bag due to ulcerative colitis. 02/23/2016 38500 CPHL SHQ Completed 11/18/2014 Mammogram Completed 02/24/2014 Mammogram Completed 10/09/2013 36516 Pulse Oximetry Completed 02/25/2013 32535 CPHL SHQ Completed 02/14/2012 Mammogram Completed 01/05/2012 Mammogram Completed 12/27/2011 33590 CP SHQ Completed 11/26/2011 00127 I & D Abscess Simple Completed Encounters Type Date Location Provider CPT E/M Dx Office Visit 01/18/2018 1:40p [facility] Purvi Valderrama M.D. 03789 M54.2 Z23 Office Visit 06/16/2017 3:15p [facility] MARK Mcnamara 31670 R59.0 Office Visit 11/29/2016 3:30p [facility] Tariq Davila-Sherine 18654 J02.9 Office Visit 02/23/2016 2:00p [facility] Purvi Valderrama M.D. 72905 Z00.00 M54.2 M25.511 N62 E66.3 Office Visit 05/07/2015 11:20a [facility] Paige Romero M.D. 96369 J20.9 Office Visit 11/11/2014 1:40p [facility] Purvi Valderrama M.D. 31200 723.1 728.85 719.41 611.1 Office Visit 08/27/2014 4:20p [facility] Purvi Valderrama M.D. 43643 723.1 728.85 611.79 Office Visit 02/19/2014 1:30p [facility] Delmi AngelesJustin 95579 723.5 Office Visit 01/28/2014 1:00p [facility] Purvi Valderrama M.D. 92133 V70.0 346.80 278.02 726.19 281.9 272.4 782.9 611.79 V76.12 V04.81 Office Visit 10/09/2013 3:45p [facility] Office Kezia Durbin, [facility] [id number] 466.0 780.60 786.2 Office Visit 02/25/2013 6:40p Main Office Purvi Valderrama M.D. 76637 V70.0 737.34 278.02 v04.81 599.72 Office Visit 11/06/2012 11:20a [facility] Office Bucky Bowen M.D. 27480 681.00 354.0 Office Visit 04/27/2012 9:15a Main Office Ileana Monreal [facility] 70863 723.1 Office Visit 12/27/2011 10:50a Main Office Purvi Valderrama M.D. 38095 V70.0 V72.31 v06.5 Office Visit 11/30/2011 10:45a Main Office Ileana Monreal [facility] 48231 723.1 Office Visit 11/10/2011 10:00a Main Office Lesia McgheeTariq [address] 719.47 346.80 Plan of Care Future Appointment(s):02/28/2018 1:00 pm - Purvi Valderrama M.D. at Main Kfqpfi2602/16/2018 - Purvi Valderrama M.D.Z01.818 Encounter for other preprocedural examinationComments:If all labs and EKG done in the hospital for pre-op are normal, patient is cleared for surgery. Her labs here were normal. CXR - no acute disease.M54.2 CervicalgiaComments:proceed with surgery as scheduled.E78.5 Hyperlipidemia, unspecifiedComments:at 1.2% risk per the ACC/ AHA . No need for medication at this time.AllComments:~B_~U_Medication Management~b_~u_ Patient Understands medications she's taking? Yes No Are there Barriers to Adherence? Yes No Has the patient been asked about herbal supplements and therapies, and OTC meds? Yes No
--- OUTSIDE RECORDS SUMMARY | 2018-02-21 11:13 | XMS REPORT | Continuity of Care Document ---
:1965 External Reference #:[id number] Author Name Zoltan Higginbotham MD Address [address] [place] [address] Care Team Providers Name Role Phone Viji Fitzgerald Care Team Information Canvas [employer] Machine Unavailable Purvi Valderrama M.D. 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 Unknown 1-5 Cigarettes Daily Quit at age 33. Tobacco Use Start: Unknown Never Smoked Cigars Tobacco Use Start: Unknown Never Smoked A Pipe Smokeless Tobacco Never Used Smokeless Tobacco ETOH Use Currently rarely consumes alcohol Allergies, Adverse Reactions, Alerts Date Description Reaction Status Severity Comments 02/15/2018 Amoxicillin Active stomach sensitivity Medications Medication Date Status Form Strength Qnty SIG Indications Ordering Provider Hydrocodone Active Tablets 5-325mg Unknown Bitartrate/Aceta 0 minophen Tizanidine HCL Active Capsules 2mg prn Unknown 0 B Complex Active Capsules bid Unknown 0 Vitamin D3 Active Capsules [id number] bid Unknown 0 Niacin Active Tablets 525mg bid Unknown 0 [place] 3 Active Capsules 100mg bid Unknown 0 Iron Active Tablets 27mg bid Unknown 0 Immunizations Description No Information Available Vital Signs Date Vital Result Comment 02/15/2018 9:28am Weight 226.00 lb Weight 102.514 kg Height 69 inches 5'9" Height in cm's 175.3 cm BMI (Body Mass Index) 33.4 kg/m2 Results Description No Information Available Procedures Date Code Description Status 02/15/2018 05709 Fiberoptic Laryngoscopy Completed Encounters Type Date Location Provider Dx Diagnosis Office Visit 02/15/2018 [place] 03/06/07 Zoltan Higginbotham MD M54.2 Cervicalgia 9:30a R49.0 Dysphonia Plan of Treatment 02/15/2018 - Zoltan Higginbotham MDM54.2 EyourrvmcviX44.0 DysphoniaComments:No evidence of any cranial abnormalities, no evidence of any abnormality of the mobility of the larynx.
[2018-02-21] MEDS ORDERED: Sodium Chloride 0.9%* 10 ML ONE (11:35)
[2018-02-21] MEDS ORDERED: Propofol* 500 MG/50 ML BTL ONE ×2 (11:35→13:27)
[2018-02-21] MEDS ORDERED: Remifentanil* 2 MG VIAL ONE ×3 (11:35→14:36)
[2018-02-21] MEDS ORDERED: Famotidine IV* 10 MG/ML 2 ML (20 mg) ONE (11:37)
[2018-02-21] MEDS ORDERED: ceFAZolin 2 GM PREMIX in ORs 2 GM/50 ML BAG IVPB ONE (11:38)
[2018-02-21] MEDS ORDERED: Artificial Tear OPHTH.OINT* 3.5 GM ONE (12:08)
[2018-02-21] MEDS ORDERED: Cisatracurium* 2 MG/ML MDV 5 ML ONE (12:09)
[2018-02-21] MEDS ORDERED: Lidocaine 1% MPF wEPI 200,000* 30 ML SDV ONE (12:19)
[2018-02-21] MEDS ORDERED: Bacitracin IV* 50,000 UNITS INJ ONE (12:20)
[2018-02-21] MEDS ORDERED: Thrombin 5,000 UNITS* 1 APPLIC KIT - topical use - TOPICAL ONE (12:20)
[2018-02-21] MEDS ORDERED: EPHEDrine (Pressors)* 50 MG/ML VIAL ONE (13:15)
[2018-02-21] MEDS ORDERED: Phenylephrine INJ* 10 MG/ML 1 ML VIAL (10 MG) ONE (13:31)
[2018-02-21] MEDS ORDERED: Ondansetron INJ* 2 MG/ML VIAL IV PRN (14:29)
[2018-02-21] MEDS ORDERED: Naloxone* 0.4 MG/ML 1 ML VIAL IV PRN (14:29)
[2018-02-21] MEDS ORDERED: HYDROcodone/ACETAMIN 5-325 MG* 1 TAB PO PRN (15:48)
[2018-02-21] MEDS ORDERED: Magnesium Hydroxide LIQ* 30 ML UDC PO PRN (15:48)
[2018-02-21] MEDS ORDERED: Acetaminophen TAB* 325 MG PO PRN (15:48)
[2018-02-21] MEDS ORDERED: Morphine VIAL* 4 MG/ML VIAL (1 ml vial) IV PRN (15:52)
[2018-02-21] MEDS ORDERED: HYDROmorphone INJ1* 1 MG/ML SYRINGE ONE (15:54)
[2018-02-21] MEDS: HYDROmorphone INJ1* 1 MG/ML SYRINGE IV PRN ×2 (15:55→16:06)
[2018-02-21] MEDS ORDERED: fentaNYL* 50 MCG/ML 5 ML VIAL (250 MCG VIAL) ONE (16:08)
[2018-02-21] MEDS: fentaNYL* 50 MCG/ML 2 ML VIAL (100 MCG VIAL) IV PRN ×3 (16:10→16:22)
[2018-02-21] MEDS ORDERED: hydrALAZINE IV* 20 MG/ML VIAL IV SLOW PU PRN (18:08)
--- NOTE | 2018-02-21 18:15 | CONSULT ---
Subjective Date of Service: 02/21/18 Interval History: Ms. Sarah Cardona is a 52 year old female with a PMH of ulcerative colitis s/p colectomy and ileostomy, migraines, iron deficiency anemia admitted for elective anterior cervical discectomy and fusion with instrumentation C5-C6 with Dr. Fitzgerald today. The hospitalist team was asked to evaluate this patient due to post operative hypertension. At the time of my exam the patient was resting in bed with collar in place. She reports 7/10 deep, aching clavicle pain, as well as numbness and tingling of her left arm down to her 4th and 5th fingertips which she says is unchanged from her baseline. She denies neck pain, chest pain, shortness of breath, palpitations, headache, dizziness, abdominal pain. Past Medical History Migraine (1-2x per month) Ulcerative Colitis s/p ileostomy and colectomy, ileal S pouch attached to rectum HLD Iron deficiency anemia Surgical History Colectomy and ileostomy 2004 Benign neck tumor removal 1984 C section Breast biopsy Skin cancer removed from head Social History Pt is a former smoker but quit in 1997. She endorses drinking alcohol occasionally, 1-2x per month. 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 Review of Systems - Measurements Intake and Output: Intake and Output Last 24 Hours 02/19/18 02/20/18 02/21/18 02/22/18 06:59 06:59 06:59 06:59 Intake Total 1800 Output Total 1615 Balance 185 Weight 103.691 kg Intake: IV Fluids 1800 LR 1750 NS 50ML, Cefazolin 2G 50 Output: Ruiz 1600 Estimated Blood Loss 15 - Review of Systems General Comments: I completed a 14 point review of systems. All the pertinent positives and negatives are listed above. Objective Active Medications: Acetaminophen (Tylenol Tab*) 650 mg PO Q4H PRN PRN Reason: PAIN Hydrocodone Bitart/Acetaminophen ([place] 5-325 Tab*) 1 tab PO Q4H PRN PRN Reason: moderate pain Hydrocodone Bitart/Acetaminophen ([place] 5-325 Tab*) 2 tab PO Q4H PRN PRN Reason: marked pain Famotidine (Pepcid Iv*) 20 mg IV ONCE ONE Stop: 02/21/18 06:01 Last Admin: 02/21/18 11:54 Dose: 20 mg Fentanyl Citrate (Fentanyl*) 50 mcg IV Q5M PRN PRN Reason: PAIN - MODERATE Last Admin: 02/21/18 16:22 Dose: 50 mcg Hydralazine HCl (Apresoline Iv*) 5 mg IV SLOW PU Q6H PRN PRN Reason: SYSTOLIC BP GREATER THAN: Hydromorphone HCl (Dilaudid Inj1s*) 0.5 mg IV Q10M PRN PRN Reason: PAIN - SEVERE Last Admin: 02/21/18 16:06 Dose: 0.5 mg Lactated Ringer's (Lactated Ringers 1000 Ml Bag*) 1,000 mls @ 125 mls/hr IV PER RATE [place] Last Admin: 02/21/18 11:55 Dose: 125 mls/hr Lidocaine/Sodium Bicarbonate (Buffered Lidocaine 0.9% Syrin*) 0.2 ml INTRADERM ONCE ONE Stop: 02/20/18 12:03 Last Admin: 02/21/18 11:54 Dose: 1 applic Magnesium Hydroxide (Milk Of Magnesia Liq*) 30 ml PO DAILY PRN PRN Reason: CONSTIPATION Morphine Sulfate (Morphine Inj ((Syringe))*) 1 mg IV Q2H PRN PRN Reason: PAIN Naloxone HCl (Narcan*) 0.08 mg IV Q2M PRN PRN Reason: severe induced resp depression Ondansetron HCl (Zofran Inj*) 4 mg IV ONCE PRN PRN Reason: NAUSEA/VOMITING Vital Signs - 8 hr 02/21/18 02/21/18 02/21/18 11:42 15:40 15:42 Temperature 96.8 F 97.7 F Pulse Rate 68 103 Respiratory 16 16 21 Rate Blood Pressure 153/84 146/88 (mmHg) O2 Sat by Pulse 99 99 Oximetry 02/21/18 02/21/18 02/21/18 15:45 15:50 15:55 Temperature Pulse Rate 100 103 97 Respiratory 21 25 22 Rate Blood Pressure 155/95 160/87 159/98 (mmHg) O2 Sat by Pulse 98 98 98 Oximetry 02/21/18 02/21/18 02/21/18 16:00 16:06 16:10 Temperature Pulse Rate 94 103 Respiratory 29 29 20 Rate Blood Pressure 161/101 156/93 (mmHg) O2 Sat by Pulse 98 97 Oximetry 02/21/18 02/21/18 02/21/18 16:15 16:16 16:22 Temperature Pulse Rate 101 Respiratory 23 25 22 Rate Blood Pressure 149/105 (mmHg) O2 Sat by Pulse 97 Oximetry 02/21/18 02/21/18 02/21/18 16:35 16:45 16:50 Temperature Pulse Rate 93 92 96 Respiratory 15 15 18 Rate Blood Pressure 149/94 147/98 146/94 (mmHg) O2 Sat by Pulse 98 98 98 Oximetry 02/21/18 02/21/18 02/21/18 16:55 17:00 17:01 Temperature Pulse Rate 94 89 102 Respiratory 16 16 18 Rate Blood Pressure 145/91 142/87 (mmHg) O2 Sat by Pulse 98 98 97 Oximetry 02/21/18 02/21/18 17:05 17:10 Temperature Pulse Rate 108 92 Respiratory 23 17 Rate Blood Pressure 154/103 143/96 (mmHg) O2 Sat by Pulse 97 98 Oximetry Oxygen Devices in Use Now: Nasal Cannula Eyes: No Scleral Icterus Ears/Nose/Mouth/Throat: NL Teeth, Lips, Gums Neck: - - Cervical collar in place Respiratory: Symmetrical Chest Expansion and Respiratory Effort, Clear to Auscultation Cardiovascular: NL Sounds; No Murmurs; No JVD, RRR, No Edema Abdominal: NL Sounds; No Tenderness; No Distention Extremities: No Edema, No Clubbing, Cyanosis Skin: No Rash or Ulcers, No Nodules or Sclerosis Neurological: Alert and Oriented x 3, NL Sensation, NL Muscle Strength and Tone Assessment/Plan - Billing Plan By Medical Problem: 1. Degenerative disc disease s/p cervical discectomy and fusion, C5-C6 - Pain control and overall plan per primary team, neurosurgery 2. Post operative hypertension - I suspect this is secondary to pain/post-op stress as the patient does not have a history of hypertension (BP on 02/14 was 115/73 at [facility] [place]) and is currently reporting clavicle pain. Dr Fitzgerald would like her SBP around 140. Last SBP was 143. I have ordered PRN hydralazine for SBP > 150 to achieve this goal. I suspect as pain control is achieved, this will resolve. 3. Hx Migraines - pt is not currently reporting any headache VTE PPX: SCDs and early ambulation Diet: Advance diet as tolerated Code Status: Full Code Admission Status and Rationale: Observation. Anticipate discharge to home when medically stable. Attending: Bekah Cavanaugh
[2018-02-21] MEDS: HYDROcodone/ACETAMIN 5-325 MG* 1 TAB PO PRN ×2 (19:34→23:38)
[2018-02-21] MEDS: Ondansetron INJ* 2 MG/ML VIAL IV PRN (23:15)
[2018-02-22] MEDS: HYDROcodone/ACETAMIN 5-325 MG* 1 TAB PO PRN ×5 (05:43→22:14)
--- NOTE | 2018-02-22 11:06 | OP ---
OPERATIVE REPORT: DATE OF OPERATION: 02/21/18 DATE OF : 67 SURGEON: Viji Fitzgerald MD TAXATION AGENT: Karin Mayfield. ANESTHESIA: General. PRE-OP DIAGNOSIS: Degenerative disk disease, C5-6. POST-OP DIAGNOSIS: Degenerative disk disease, C5-6. OPERATIVE PROCEDURE: The patient underwent anterior cervical diskectomy and fusion with autologous iliac graft and bone graft, DBX with structural allograft and plate. ESTIMATED BLOOD LOSS: 15 cc. COMPLICATIONS: None. INDICATIONS: The patient is a very pleasant 52-year-old female with complaints of neck pain radiating to the left upper extremity with significant weakness and numbness in the left upper extremity. The patient had MRI findings consistent with degenerative disk disease and leftward disk osteophyte complex at C5-6. After failing conservative treatment modalities, he was offered the option of surgical intervention in the form of anterior cervical diskectomy with fusion. After explaining the expectation, limitation, possible complications of the procedure to the patient and her with complications including, but not limited to bleeding, infection, risk of injury to the adjacent structures, coma, paralysis, , need for additional procedures, anesthesia risk, stroke, blindness, cancer, instability, hardware failure, adjacent level disease, pseudoarthrosis, recurrent laryngeal nerve injury, spinal fluid leak, Mira syndrome, need for tracheostomy or gastrostomy , need for prolonged ICU stay and anesthesia risks, the patient was agreeable to proceed with surgery. Informed consent was obtained. She also understood that her condition may not improve and in fact may get worse after surgery and that she may need to have additional procedures in the future. She also understood that the operative plan may be modified according to intraoperative findings and conditions and that the procedure may be aborted or done in more than one stage. DESCRIPTION OF PROCEDURE: The patient was brought to the operating room, was placed under general anesthesia by the anesthesia team. She was carefully positioned supine on the operating table and all bony prominences were meticulously padded. Her skin was prepped and draped in standard fashion. After appropriate surgical pause and patient identification, a right paramedian incision was marked on the skin with the use of intraoperative fluoroscopic imaging. The skin was infiltrated with local anesthetic and incised with a #10 surgical blade. The incision was carried down to the subcutaneous tissue with Bovie cautery. The skin was gently undermined with tenotomy scissors. The platysma was gently divided with tenotomy scissors. This was also undermined. The plane between the medial border of the sternocleidomastoid and the medial structures was gently developed with sharp and blunt dissection. After incising the prevertebral fascia, intraoperative fluoroscopic imaging confirmed appropriate surgical level and a second timeout was performed. Self-retaining retractors were introduced into the field after gently undermining the longus colli muscles and [place] pins were then secured to C5 and C6 vertebral bodies. Another intraoperative imaging confirmed the appropriate surgical level and a standard diskectomy was performed after incising the annulus fibrosus with 15 surgical blade with the use of pituitary rongeurs, Kerrison punches, high speed drills and curettes. Of note, bone removed during this part of the procedure was saved for the arthrodesis part of the procedure. After the diskectomy was almost complete, intraoperative microscope was brought into the field and an extensive left foraminotomy was performed. Significant osteophytes were identified as was expected from the preoperative imaging. At the end of the foraminotomy and diskectomy, the thecal sac was found to be free of any pressure phenomenon. Then, a structural bone allograft 7 mm in height was placed into the intervertebral space after being filled with locally harvested bone graft and DBX. A 19 mm Zevo Medtronic plate was then secured in place with 4 screws and after copious irrigation and confirmation of meticulous hemostasis , the wound was closed by layers over a Rashel drain which was inserted through a separate stab wound incision. Prior to the incision, meticulous hemostasis was confirmed with copious irrigation and meticulous inspection. The 2-0 Vicryl suture was used to approximate the platysma and 2-0 inverted interrupted Vicryl suture was used to approximate the subcutaneous tissue while the skin was covered with Dermabond. At the end of the procedure, all counts were reported to be correct. The patient remained hemodynamically stable throughout the case. I was present, scrubbed for the entirety of the case. At the end of the procedure, the patient was extubated and was transferred to Recovery in excellent condition. [id number]/[id number] #: [id number] [facility] HOSPITALChristiano
[2018-02-22] MEDS: Ondansetron INJ* 2 MG/ML VIAL IV PRN (15:26)
[2018-02-22] MEDS: TIZANIDINE 2 MG PO PRN (15:26)
--- NOTE | 2018-02-22 15:57 | PN ---
Subjective Date of Service: 02/22/18 Interval History: Resting in bed on assessment with guest at bedside Neck collar in place. Reports pain is well controlled on [place] PO. Requesting Tizanidine PO PRN as she takes this at home for jaw and neck tension. Reports she "holds stress" in her jaw and neck and if she takes Tizanidine when she starts feeling this she can avoid a migraine. Reports mild tingling in left 4th and 5th digit which is baseline for her. Denies cp, sob, palpitations, n/v/d, urinary symptoms. Objective Active Medications: Acetaminophen (Tylenol Tab*) 650 mg PO Q4H PRN PRN Reason: PAIN Hydrocodone Bitart/Acetaminophen ([place] 5-325 Tab*) 1 tab PO Q4H PRN PRN Reason: moderate pain Hydrocodone Bitart/Acetaminophen ([place] 5-325 Tab*) 2 tab PO Q4H PRN PRN Reason: marked pain Last Admin: 02/22/18 13:37 Dose: 2 tab Hydralazine HCl (Apresoline Iv*) 5 mg IV SLOW PU Q6H PRN PRN Reason: SYSTOLIC BP GREATER THAN: Magnesium Hydroxide (Milk Of Magnesia Liq*) 30 ml PO DAILY PRN PRN Reason: CONSTIPATION Morphine Sulfate (Morphine Vial*) 1 mg IV Q2H PRN PRN Reason: PAIN Last Admin: 02/21/18 18:45 Dose: 1 mg Ondansetron HCl (Zofran Inj*) 4 mg IV Q8H PRN PRN Reason: NAUSEA Last Admin: 02/22/18 15:26 Dose: 4 mg Tizanidine HCl (Zanaflex Tab*) 2 mg PO DAILY PRN PRN Reason: .PAIN Last Admin: 02/22/18 15:26 Dose: 2 mg Vital Signs - 8 hr 02/22/18 02/22/18 02/22/18 08:10 09:46 11:42 Respiratory 16 16 15 Rate O2 Sat by Pulse 98 Oximetry 02/22/18 13:37 Respiratory 16 Rate O2 Sat by Pulse Oximetry Oxygen Devices in Use Now: None Appearance: Well appearing Eyes: No Scleral Icterus Ears/Nose/Mouth/Throat: Clear Oropharnyx, Mucous Membranes Moist Neck: - - Collar in place. ANNEMARIE drain in place. Scant drainage noted in bulb Respiratory: Symmetrical Chest Expansion and Respiratory Effort, Clear to Auscultation Cardiovascular: NL Sounds; No Murmurs; No JVD, RRR, No Edema Abdominal: NL Sounds; No Tenderness; No Distention Extremities: No Edema Skin: No Rash or Ulcers, - - Dressing to anterior neck. CDI Neurological: Alert and Oriented x 3, NL Muscle Strength and Tone Nutrition: Taking PO's Assess/Plan/Problems-Billing Assessment: 52 yr old female with pmh of migraines, ulcerative colitis, hld, and iron def anemia, who is pod 1 s/p cervical discectomy and fusion, C5-C6 - Patient Problems (1) Degenerative disc disease Comment: - pod 1 s/p cervical discectomy and fusion, C5-C6 - Managment per neurosurg team (2) Hypertension Comment: - Patient was hypertensive in the post operative period, therefore, our team was consulted. - Patient is now normotensive and has no hx of htn or treatment for hypertension - I suspected hypertension was due to pain and anxiety related to surgery - We will continue to monitor (3) Migraine Comment: - Hx of migraines - Migraines related to stress which she states she holds in her jaw and neck. - Uses Tizanidine prn at home with relief - Tizanidine okay'd by neuroteam and ordered (4) DVT prophylaxis Comment: - SCDs and ambulation Status and Disposition: Thank you for allowing to assist in the care of this patient. We will follow along with you during her hospital stay. Attending: Bekah Cavanaugh
--- NOTE | 2018-02-22 16:34 | PN ---
Progress Note - Progress Note Date of Service: 02/22/18 SOAP: Subjective: [] No events ON. Tolerated procedure well yesterday. Tolerates po well. Ambulates. Covel nausea with ambulation. Voids. MJ collar. Voice normal. No difficulties breathing. Objective: []VSS,Afebrile Wound s,c d. Drain output noted Drain was removed. Catheter appeared to be intact. Patient tolerated procedure well. AAOx3, JOSE, CN II-XII grossly intact Motor 5/5 all extremities. Sensory grossly intact to light touch. Assessment: []52 yof POD#1 ACDF C5-6 Plan: []Monitor VS, Neurochecks Encourage ambulation. BP control per IM, Appreciate IM consult. XR reveals good alignment of cervical spine, good placement of hardware. MJ collar. DC planning. Femi Fitzgerald MD
[2018-02-22] MEDS: Cyclobenzaprine TAB* 10 MG PO PRN (21:50)
[2018-02-23] MEDS: HYDROcodone/ACETAMIN 5-325 MG* 1 TAB PO PRN ×3 (03:22→13:52)
[2018-02-23] MEDS: Cyclobenzaprine TAB* 10 MG PO PRN (07:59)
[2018-02-23] MEDS: TIZANIDINE 2 MG PO PRN (13:53)
[2018-02-23 15:36] VITALS: BP 126/73
--- NOTE | 2018-02-23 22:43 | PN ---
Progress Note - Progress Note Date of Service: 02/23/18 SOAP: Subjective: [] Patient was seen earlier today. No events ON. Tolerates po well. Ambulates. Voids. MJ collar. Voice normal. Wants to go home. Preop LUE numbness almost resolved. Objective: []VSS,Afebrile Wound s,c d. MJ collar. AAOx3, JOSE, CN II-XII grossly intact Motor 5/5 all extremities. Sensory grossly intact to light touch. Assessment: []52 yof POD#2 ACDF C5-6 Plan: []Monitor VS, Neurochecks Encourage ambulation. BP control per IM, Appreciate IM consult.. MJ collar. DC planning today. Full instructions were given. Femi Fitzgerald MD
== END 2018-02-23 15:25 | disposition home or self-care (01) ==
LOC: AA 11:10 → INTOOBSV 11:10 → SSU 18:02 → AA 18:02 → SSU 18:07
PROVIDERS: ADMIT Neurological Surgery; ATTEND Neurological Surgery
DX: M50.122 Cervical disc disorder at C5-C6 level with radiculopathy (principal); M48.02 Spinal stenosis, cervical region; M50.222 Other cervical disc displacement at C5-C6 level; Z87.891 Personal history of nicotine dependence; Z88.0 Allergy status to penicillin; M54.2 Cervicalgia
CPT/HCPCS: 72040; 76001; 96374; 96375; 96376; A9270-GY; C1713; C1776; C9359; G0378; J0690; J1100; J1170; J2001; J2250; J2270; J2405; J2704; J3010

== ENCOUNTER 2018-07-24 08:49 | Emergency (ER) | payer OTHER ==
[2018-07-24 09:02] VITALS: BP 146/85
--- NOTE | 2018-07-24 09:33 | UC ---
Skin Complaint HPI - HPI Summary HPI Summary: Pt presents with lesion in left axilla - present x 4 days- drained this am. Pt with h/o similar. + tender. No analgesia taken No fever, chills. no known h/o of MRSA but has has several drained in past. No recent abx . Pt with h/o crohn's - s/p colectomy Not not current on immunosuppressants - History of Current Complaint Chief Complaint: UCSkin Time Seen by Provider: 07/24/18 09:17 Stated Complaint: SKIN COMPLAINT Hx Obtained From: Patient ?: No Pain Intensity: 6 - Allergy/Home Medications Allergies/Adverse Reactions: Allergies Allergy/AdvReac Type Severity Reaction Status Date / Time amoxicillin Allergy upset Verified 07/24/18 08:56 stomach PMH/Surg Hx/FS Hx/Imm Hx Previously Healthy: Yes - crohns - Surgical History Surgical History: Yes Surgery Procedure, Year, and Place: LT BREAST BIOPSY - W/ CLIP PLACEMENT - [id number]- BENIGN TUMOR REMOVED FROM BEHIND Rt [id number] C [id number] - [facility]- POUCH RECONSTRUCTION - COMPLETE COLON REMOVED - ULCERATIVE COLITIS - Family History Known Family History: Positive: Cardiac Disease, Hypertension, Other - sister, neck problems Negative: Renal Disease, Seizure Disorder, Blood Disorder - Social History Occupation: Employed Full-time Alcohol Use: Occasionally Alcohol Amount: 2 per week Substance Use Type: None Smoking Status (MU): Former Smoker Amount Used/How Often: 1/2 pack for 7 When Did the Patient Quit Smoking/Using Tobacco: 1998 - Immunization History Most Recent Influenza Vaccination: 2018 Most Recent Pneumonia Vaccination: unsure Review of Systems All Other Systems Reviewed And Are Negative: Yes Constitutional: Positive: Negative Skin: Positive: Other - left axillary abscess Physical Exam - Summary Physical Exam Summary: Vital Signs Reviewed: Yes A+Ox3, Eyes: Conjunctiva Clear, JOSE. EOM intact and full ENT: Hearing grossly normal TM x 2 clear, , mmoist, uvula midline, no exudate, no erythema Neck: Positive: Supple Respiratory: Positive: No respiratory distress, No accessory muscle use, coarse cough + scattere wheeze, rhonci right base Cardiovascular: RRR nl s1, s2 no m/r CBT <2 sec abd soft + BS nt/nd no guarding, no distension Musculoskeletal Exam: [place] x 4 without difficulty Strength Intact, ROM Intact Neurological: Positive: Alert, + sensation throughout Psychological: Positive: Normal Response To Family Skin: Positive: no rash, no ecchymosis, left axilla 2cm red, raised fluctuance area with pointing center and mild purluent drainage, well demarcated Triage Information Reviewed: Yes Vital Signs: Initial Vital Signs Temp 97.9 F 07/24/18 08:53 Pulse 83 07/24/18 08:53 Resp 16 07/24/18 08:53 BP 146/85 07/24/18 08:53 Pulse Ox 99 07/24/18 08:53 Procedures - Procedure Summary Procedure Summary: permission to treat time out with RN at bedside cleansed with betadine infiltrated with lidocaine, no epi 2ml used 11 blade under sterile condition + purulent discharge - culture taken mos[place] for loculations irrigated with 200ml sterile saline packing placed covered with gauze reviewed care plan return precuation pt comfortable with plan - Incision and Drainage Left Upper Axilla Site: left axilla Anesthesia: Local Instrument(s): Scalpel Packing: Gauze Course/Dx - Course Course Of Treatment: t with absocess in left axilla - minimal drainage this am VSS + I+D with packing under sterile conditiosn culture doxy motrin/apap = declined here wound care return rpecuations elevated BP - related to condition - f/u with pcp - Diagnoses Provider Diagnosis: Abscess Discharge - Sign-Out/Discharge Documenting (check all that apply): Patient Departure All imaging exams completed and their final reports reviewed: No Studies - Discharge Plan Condition: Stable Disposition: HOME Prescriptions: DOXYcycline CAP(*) [DOXYcycline 100MG CAP(*)] 100 mg PO BID #20 cap Patient Education Materials: Abscess (ED) Referrals: Purvi Valderrama MD [Primary Care Provider] - Additional Instructions: - alternate ibuprofen (Advil, Motrin) and Tylenol every 3 hours for pain - take antibiotics as prescribed until gone - packing should be removed in 36-48 hours - a culture has been sent to the lab from your wound- if you need a different antibiotic you will receive a call from a care telesales team leader - monitor for increased infection - reddness, red streaking, fever, drainage - contact your doctor or return with questions or concerns - Billing Disposition and Condition Condition: STABLE Disposition: Home
[2018-07-24] MEDS ORDERED: Lidocaine 1%* 5 ML VIAL INJ ONE (09:40)
== END 2018-07-24 10:30 | disposition home or self-care (01) ==
LOC: UCEAST 08:49
DX: L02.412 Cutaneous abscess of left axilla (principal); Z88.0 Allergy status to penicillin; Z87.891 Personal history of nicotine dependence
CPT/HCPCS: 10060; 87070; 87077; 87186; 87205; 99212; G0463